=== PATIENT | male | born 1955 | race African-American/Black ===

== ENCOUNTER 2018-11-23 14:17 | Emergency (ER) | payer MEDICAID ==
[~2018-11-23] VITALS: Ht 177.8 cm; Wt 89.0 kg
[~2018-11-23 14:17] MED LIST: AMLO5TAB4
[2018-11-23] MEDS ORDERED: KETOROLAC 15MG/ML VIAL IV ONE (15:00)
[2018-11-23] MEDS ORDERED: HYDROCODONE/ACETAMINOPHEN 5/325MG TABLET PO ONE (15:00)
[2018-11-23 17:20] VITALS: BP 142/82
== END 2018-11-23 17:24 | disposition home or self-care (01) ==
LOC: ER 14:17
DX: M25.552 Pain in left hip (principal); Z98.890 Other specified postprocedural states
CPT/HCPCS: 73502; 96374; 99283; J1885

== ENCOUNTER 2019-08-16 20:34 | Inpatient (IN) | payer MEDICAID ==
[~2019-08-16] VITALS: Ht 188 cm; Wt 75.5 kg
[2019-08-16] MEDS ORDERED: SODIUM CHLORIDE 0.9% 500 ML IV ONE (22:15)
[2019-08-16 22:28] LABS: BASOPHILS % 0.2 % (0.0-2.0); CHLORIDE 110 mEq/L (98-107); EOSINOPHILS % 0.4 % (0.0-5.0); HEMATOCRIT. 34.5 % (42.0-52.0); HEMOGLOBIN. 11.6 g/dL (14.0-18.0); LYMPHOCYTES % 32.8 % (20.0-50.0); MEAN CORPUSCULAR HEMOGLOBIN 30.5 pg (28.0-32.0); MEAN CORPUSCULAR VOLUME 90.3 fL (80.0-94.0); MEAN PLATELET VOLUME 7.8 fl (7.4-10.4); MONOCYTES % 10.5 % (2.0-8.0); NEUTROPHILS % 56.1 % (40.0-76.0); PLATELET 210 x1000/uL (130-400); RED BLOOD CELL COUNT 3.82 mill/uL (4.7-6.1)
[2019-08-17] MEDS ORDERED: KETOROLAC 15MG/ML VIAL IV NR (01:00)
[2019-08-17 08:15] VITALS: BP 138/85
[2019-08-17 09:17] VITALS: BP 138/85
[2019-08-17] MEDS ORDERED: TRAM50TA3 MT (09:29)
[2019-08-17] MEDS ORDERED: DIPH25CA83 MT (09:29)
[2019-08-17] MEDS ORDERED: AMLO5TAB88 MT (09:29)
[2019-08-17] MEDS ORDERED: ONDANSETRON HCL 4MG/2ML INJ IV PRN (10:15)
[2019-08-17] MEDS ORDERED: ACETAMINOPHEN 325MG TABLET PO PRN (10:15)
[2019-08-17] MEDS ORDERED: POTASSIUM CHLORIDE 20MEQ TABLET SR PO SCH (11:00)
[2019-08-17 11:16] LABS: LDL CHOLESTEROL 14 mg/dL (5-100)
[2019-08-17 11:18] LABS: HDL CHOLESTEROL 127 mg/dL (40-59)
[2019-08-17 12:00] VITALS: BP 146/85
[2019-08-17] MEDS: METOPROLOL TARTRATE 25MG TABLET PO SCH ×2 (12:25→21:52)
[2019-08-17] MEDS ORDERED: PNEUMOCOCCAL 23-VAL P-SAC VAC 0.5 ML IM ONE (13:00)
[2019-08-17 16:00] VITALS: BP 139/79
[2019-08-17 16:52] LABS: CLARITY URINE CLEAR (CLEAR); COLOR URINE YELLOW (YELLOW); KETONES URINE NEGATIVE (NEGATIVE); LEUKOCYTE ESTERASE URINE NEGATIVE (NEGATIVE); NITRITE URINE NEGATIVE (NEGATIVE); OCCULT BLOOD URINE NEGATIVE (NEGATIVE); PH URINE 6.5 (4.5-8.0); PROTEIN URINE NEGATIVE (NEGATIVE); SPECIFIC GRAVITY URINE 1.015 (1.005-1.030)
[2019-08-17 17:01] LABS: *AMPHETAMINES SCREEN URINE NEGATIVE (NEGATIVE); *BARBITURATES SCREEN URINE NEGATIVE (NEGATIVE); *BENZODIAZEPINES SCREEN URINE NEGATIVE (NEGATIVE); *COCAINE SCREEN URINE NEGATIVE (NEGATIVE)
[2019-08-17 17:02] LABS: CANNABINOID URINE SCREEN NEGATIVE (NEGATIVE); METHADONE URINE SCREEN NEGATIVE (NEGATIVE); OPIATES URINE SCREEN NEGATIVE (NEGATIVE); PHENCYCLIDINE URINE SCREEN NEGATIVE (NEGATIVE)
[2019-08-17 20:00] VITALS: BP 148/83
[2019-08-17] MEDS: ZOLPIDEM TARTRATE 5MG TABLET PO PRN (21:53)
[2019-08-18] VITALS (7 sets, daily range): BP systolic 112–151; BP diastolic 65–89
[2019-08-18 07:17] LABS: BASOPHILS % 0.2 % (0.0-2.0); EOSINOPHILS % 0.7 % (0.0-5.0); LYMPHOCYTES % 24.3 % (20.0-50.0); MEAN CORPUSCULAR HEMOGLOBIN 30.2 pg (28.0-32.0); MEAN CORPUSCULAR VOLUME 90.7 fL (80.0-94.0); MEAN PLATELET VOLUME 8.6 fl (7.4-10.4); NEUTROPHILS % 65.8 % (40.0-76.0); PLATELET 156 x1000/uL (130-400); RED BLOOD CELL COUNT 3.64 mill/uL (4.7-6.1); RED CELL DISTRIBUTION WIDTH 18.1 % (11.6-14.6)
[2019-08-18 08:11] LABS: CHLORIDE 104 mEq/L (98-107)
[2019-08-18] MEDS: AMLODIPINE 5MG TABLET PO SCH (09:53)
[2019-08-18] MEDS: POTASSIUM CHLORIDE 20MEQ TABLET SR PO SCH (09:54)
[2019-08-18] MEDS: METOPROLOL TARTRATE 25MG TABLET PO SCH ×2 (09:54→21:14)
[2019-08-18] MEDS: ZOLPIDEM TARTRATE 5MG TABLET PO PRN (21:14)
[2019-08-19] VITALS: BP 133/86
[2019-08-19 04:00] VITALS: BP 145/87
[2019-08-19 08:00] VITALS: BP 132/79
[2019-08-19] MEDS: METOPROLOL TARTRATE 25MG TABLET PO SCH (08:23)
[2019-08-19] MEDS: POTASSIUM CHLORIDE 20MEQ TABLET SR PO SCH (08:23)
[2019-08-19] MEDS: AMLODIPINE 5MG TABLET PO SCH (08:23)
[2019-08-19 12:20] VITALS: BP 143/82
[2019-08-19 15:25] VITALS: BP 132/70
[2019-08-19 15:56] VITALS: BP 139/85
== END 2019-08-19 16:00 | disposition home or self-care (01) | DRG 48 ==
LOC: ER 20:34 → 6WST 08-17 03:11 → EDBEDREQ 08-17 03:13 → EDBEDREQTM 08-17 03:13 → ENRESERV 08-17 07:32
PROVIDERS: ADMIT Internal Medicine; ATTEND Internal Medicine
DX: G90.8 Other disorders of autonomic nervous system (principal); I10 Essential (primary) hypertension; Z96.642 Presence of left artificial hip joint; E87.8 Other disorders of electrolyte and fluid balance, not elsewhere classified; D64.9 Anemia, unspecified; E87.6 Hypokalemia; Z60.2 Problems related to living alone
CPT/HCPCS: 36415; 70551; 71045; 80048; 80053; 80061; 80305; 81003; 83880; 84443; 84484; 85025; 90732; 93005; 93306; 93880; 96374; 97162; 97535; 99285; J1885; J7040

== ENCOUNTER 2021-05-11 19:02 | Inpatient (IN) | payer MEDICAID, OTHER ==
[~2021-05-11] VITALS: Ht 188 cm; Wt 83.6 kg
[~2021-05-11 19:02] MED LIST changes: -AMLO5TAB4; +AMLO5TAB88 MT; +DIPH25CA83 MT; +TRAM50TA3 MT
[2021-05-11] MEDS ORDERED: HYDROCODONE/ACETAMINOPHEN 5/325MG TABLET PO ONE (22:30)
[2021-05-11] MEDS ORDERED: ONDANSETRON 4MG ODT PO ONE (22:30)
[2021-05-12] MEDS ORDERED: SODIUM CHLORIDE 0.9% 1,000 ML IV ONE (02:45)
[2021-05-12 03:19] LABS: HEMATOCRIT. 35.1 % (42.0-52.0); HEMOGLOBIN. 11.7 g/dL (14.0-18.0); LYMPHOCYTES % 24.1 % (20.0-50.0); MEAN CORPUSCULAR HEMOGLOBIN 30.5 pg (28.0-32.0); MEAN CORPUSCULAR VOLUME 91.2 fL (80.0-94.0); MEAN PLATELET VOLUME 7.5 fl (7.4-10.4); MONOCYTES % 6.1 % (2.0-8.0); NEUTROPHILS % 68.8 % (40.0-76.0); PLATELET 166 x1000/uL (130-400); RED BLOOD CELL COUNT 3.85 mill/uL (4.7-6.1)
[2021-05-12 03:27] LABS: PROTHROMBIN TIME 10.6 sec (9.6-11.0)
[2021-05-12 03:28] LABS: CHLORIDE 105 mEq/L (98-107)
[2021-05-12 04:28] LABS: CLARITY URINE CLEAR (CLEAR); COLOR URINE YELLOW (YELLOW); KETONES URINE TRACE (NEGATIVE); LEUKOCYTE ESTERASE URINE NEGATIVE (NEGATIVE); NITRITE URINE NEGATIVE (NEGATIVE); OCCULT BLOOD URINE TRACE (NEGATIVE); PH URINE 5.5 (4.5-8.0); PROTEIN URINE 1+ (NEGATIVE); SPECIFIC GRAVITY URINE 1.024 (1.005-1.030)
[2021-05-12] MEDS ORDERED: DEXT 10% WATER 1,000 ML IV SCH ×3 (05:30→18:45)
[2021-05-12] MEDS ORDERED: ONDANSETRON HCL 4MG/2ML INJ IV PRN (08:30)
[2021-05-12] MEDS ORDERED: NALOXONE HCL 0.4MG/ML VIAL IV PRN (08:45)
[2021-05-12] MEDS: AMLODIPINE 10MG TABLET PO SCH (09:43)
[2021-05-12] MEDS: HYDROCODONE/ACETAMINOPHEN 5/325MG TABLET PO PRN (09:45)
[2021-05-12 14:30] VITALS: BP 155/92
[2021-05-12 20:00] VITALS: BP 159/82
[2021-05-13] VITALS: BP 140/83
[2021-05-13 08:00] VITALS: BP 133/86
[2021-05-13] MEDS: AMLODIPINE 10MG TABLET PO SCH (08:07)
[2021-05-13] MEDS: HYDROCODONE/ACETAMINOPHEN 5/325MG TABLET PO PRN (08:27)
[2021-05-13 12:00] VITALS: BP 130/80
[2021-05-13 15:49] LABS: *AMPHETAMINES SCREEN URINE NEGATIVE (NEGATIVE)
[2021-05-13 15:50] LABS: *BARBITURATES SCREEN URINE NEGATIVE (NEGATIVE); *BENZODIAZEPINES SCREEN URINE NEGATIVE (NEGATIVE); *COCAINE SCREEN URINE NEGATIVE (NEGATIVE); METHADONE URINE SCREEN NEGATIVE (NEGATIVE); OPIATES URINE SCREEN PRESUMTIVE POSITIVE (NEGATIVE); PHENCYCLIDINE URINE SCREEN NEGATIVE (NEGATIVE)
[2021-05-13 15:51] LABS: CANNABINOID URINE SCREEN NEGATIVE (NEGATIVE)
[2021-05-13 16:24] VITALS: BP 128/80
[2021-05-13 16:43] VITALS: BP 130/86
== END 2021-05-13 18:20 | disposition home or self-care (01) | DRG 351 ==
LOC: ER 19:02 → MICUSO 05-12 03:30 → 4WST 05-12 14:05
PROVIDERS: ADMIT Internal Medicine; ATTEND Internal Medicine
DX: M25.552 Pain in left hip (principal); G90.8 Other disorders of autonomic nervous system; E16.2 Hypoglycemia, unspecified; I10 Essential (primary) hypertension; Z20.822 Contact with and (suspected) exposure to COVID-19; W18.39XA Other fall on same level, initial encounter; Y93.89 Activity, other specified; Y92.89 Other specified places as the place of occurrence of the external cause; Y99.8 Other external cause status; Z82.49 Family history of ischemic heart disease and other diseases of the circulatory system; Z79.899 Other long term (current) drug therapy
CPT/HCPCS: 36415; 72192; 80053; 80305; 81003; 82962; 85025; 87426; 93306; 97162; 99285; J7030; Q0162